=== PATIENT | male | born 1950 | race Caucasian/White ===

== ENCOUNTER → 2019-09-20 | Outpatient (CLI) | payer OTHER, MEDICARE ==
[~2019-09-20] MED LIST: ASA81BEC PO; CYMBALTA30 MG PO; FLOMAX0.4 MG PO; GLIPIZIDE 10 MG10 MG PO; HYOSCYAMINE0.125 MG PO; LIPITOR40 MG PO; METFORMIN HCL500 M3 PO; ONGLYZA5 MG PO; ZOLOFT100 MG PO
== END ==
LOC: SJCVC 13:30 → SJCVCIMAG 13:30
DX: I21.19 ST elevation (STEMI) myocardial infarction involving other coronary artery of inferior wall (principal); I44.0 Atrioventricular block, first degree; I07.1 Rheumatic tricuspid insufficiency; R94.31 Abnormal electrocardiogram [ECG] [EKG]; I77.89 Other specified disorders of arteries and arterioles; I25.10 Atherosclerotic heart disease of native coronary artery without angina pectoris; E78.00 Pure hypercholesterolemia, unspecified; E11.9 Type 2 diabetes mellitus without complications; Z95.5 Presence of coronary angioplasty implant and graft; Z79.899 Other long term (current) drug therapy; Z87.891 Personal history of nicotine dependence

== ENCOUNTER → 2019-09-26 | Outpatient (CLI) | payer OTHER, MEDICARE ==
[~2019-09-26] VITALS: Ht 193 cm; Wt 95.3 kg
[2019-09-26 07:17] VITALS: BP 115/68
[2019-09-26 07:28] LABS: HEMATOCRIT 45.2 % (42.0-52.0); MCH 31.5 pg (26.0-34.0); MCHC 33.3 g/dL (28.0-37.0); MCV 94.7 fL (80.0-100.0); RBC 4.77 mil/uL (4.50-6.00); RDW 13.3 % (10.5-14.5)
[2019-09-26 07:46] LABS: CALCIUM 9.5 mg/dL (8.5-10.1); CREATININE 0.9 mg/dL (0.7-1.3); POTASSIUM 4.4 mmol/L (3.5-5.1)
--- NOTE | 2019-09-26 09:23 | EKG ---
[facility] [place] [address] ELECTROCARDIOGRAM REPORT Name: CHRISTINA CEDILLO Room #: REG [facility].#: [id number] Admission: 09/26/19 Attend Phys: Kole Saavedra MD Discharge: Date of : 46 Report #: [id number] THIS REPORT FOR: cc: Hilda Arora MD, Deborah S. MD Lundgren, Craig H. MD [facility] ~ THIS REPORT FOR: //name// [facility] Test Date: 2019-09-26 Test Time: 07:16:40 Pat Name: CHRISTINA CEDILLO Department: Room: Gender: Income Tax Auditor: ADRIANA : 1950 Requested By: Kole Saavedra Order Number: [id number] MD: Shahid Sawyer Measurements Intervals [place] Rate: 62 P: 30 NC: 222 QRS: 7 QRSD: 101 T: 32 QT: 426 QTc: 433 Interpretive Statements Sinus rhythm Prolonged NC interval No previous ECG available for comparison Electronically Signed On 09-26-2019 9:22:31 CDT by Shahid Sawyer [email or web address] <ELECTRONICALLY SIGNED> By: Shahid Sawyer MD, [facility] 09/26/19 0922 5 5 Shahid Sawyer MD, [facility] /EPI
--- NOTE | 2019-09-26 10:55 | CATHLAB ---
[facility] [place] [address] INVASIVE PROCEDURE REPORT Name: CHRISTINA CEDILLO Room #: REG [facility]#: [id number] Admission: 09/26/19 Attend Phys: Kole Saavedra MD Discharge: Date of : 46 Report #: [id number] THIS REPORT FOR: cc: Hilda Arora MD, Deborah S. MD Park, Jin S. MD ~ APPROVED REPORT Study performed: 09/26/2019 08:02:26 Patient Details Patient Status: Out-Patient Room #: The patient is a 69 year-old male Event Personnel Kole Saavedra Professor Of Psychiatry, Judi Zamora RTR, PUBLIC HEALTH DENTIST Monitor, Katharine Tse RN RN, Indira Maloney Procedures Performed Art Access - R femoral artery* Left Heart Cath w/or w/o Coronaries [id number] [facility] [address]84 Initial Mod Sed Same Phys/QHP Gr5y 004443 Hemostasis with Manual pressure 54760 Mod Sed Same Phys/QHP Ea 048119 Indication Dyspnea, Unstable angina Risk Factors Hypercholesterolemia, Coronary Artery DiseaseHypertension, Diabetes Tobacco History () Previous Procedures/Diagnoses Previous PCI Procedure Narrative The Right Groin^ was infiltrated with 1% Lidocaine subcutaneous anesthesia. A PINNACLE 4FR Sheath #[id number] sheath was inserted into the RFA^. Coronary angiography was performed using coronary diagnostic catheters. The right coronary system was accessed and visualized with a JR4 catheter. The left coronary system was accessed and visualized with a JL4 catheter. The left ventricle was accessed and visualized with a angled pigtail catheter. Left ventricular/Aortic Valve gradient assessed via catheter pullback. Left ventriculogram was performed in 30 degree projection. [facility] [address] [place] [address] INVASIVE PROCEDURE REPORT Name: CHRISTINA CEDILLO Room #: REG CL [facility]#: [id number] Admission: 09/26/19 Attend Phys: Kole Saavedra MD Discharge: Date of : 46 Report #: [id number] was obtained with manual pressure following sheath removal without any complications. The patient tolerated the procedure well and there were no complications associated with the procedure. There was no hematoma. Intraoperative Conscious Sedation Sedation start time: 08:12 Case end Time: 08:45 Fentanyl 50 mcg Versed 1 mg Fluoro Time: 3.70 minutes Dose: DAP 5972.00 cGycm2 911 mGy Contrast Type and Amount: Omnipaque 85 ml Coronary Angiography The patient's coronary anatomy is right dominant. Diagnostic Cath Left Main This is a patent vessel, with no flow-limiting lesions. LAD There are ectatic regions in the proximal and mid segments of the LAD. The distal LAD tapers at the apex. There is a stent in the proximal segment, patent with minimal restenosis. Diagonal 1 This is a small to moderate size caliber vessel, patent with no flow-limiting lesions. Circumflex There is a stent in the proximal segment, patent with minimal restenosis. OM1 This is a small to moderate size caliber vessel, patent with no flow-limiting lesions. OM2 This is a small to moderate size caliber vessel, patent with no flow-limiting lesions. Right Coronary The RCA is a dominant vessel, with ectatic segments throughout the RCA proper. There is a stent in the proximal RCA, patent with minimal restenosis. R PDA This is a moderate size caliber vessel, patent with no flow-limiting lesions. RPLV This is a moderate size caliber vessel, patent with no flow-limiting lesions. Left Ventriculography The left ventricle is normal in size with normal contractility. Hemodynamics The aortic pressure is 115/65 mmHg with a mean of 86 mmHg. The left ventricular pressure is 120/3 mmHg with a mean of mmHg. The left [facility] [address] [place] [address] INVASIVE PROCEDURE REPORT Name: CHRISTINA CEDILLO LISANDRO Room #: REG CL [facility]#: [id number] Admission: 09/26/19 Attend Phys: Kole Saavedra MD Discharge: Date of : 46 Report #: [id number] ventricular end diastolic pressure is 16 mmHg. Conclusion 1. There are patent stents in the proximal LAD, left circumflex and RCA. 2. There are ectatic regions in the LAD and RCA. 3. There is normal LV systolic function. 4. Recommend aggressive risk factor management. <ELECTRONICALLY SIGNED> By: Kole Saavedra MD 09/26/19 1054 1054 1054 Kole Saavedra MD /INF
== END ==
LOC: CATH 09-25 12:51
PROVIDERS: Internal Medicine Cardiovascular Disease
DX: I25.110 Atherosclerotic heart disease of native coronary artery with unstable angina pectoris (principal); E11.9 Type 2 diabetes mellitus without complications; E78.5 Hyperlipidemia, unspecified; I95.9 Hypotension, unspecified

== ENCOUNTER → 2019-10-10 | Outpatient (CLI) | payer OTHER, MEDICARE | LOC: SJCVC 14:51 | DX: I44.0 Atrioventricular block, first degree (principal); R94.31 Abnormal electrocardiogram [ECG] [EKG]; I25.10 Atherosclerotic heart disease of native coronary artery without angina pectoris; E78.00 Pure hypercholesterolemia, unspecified; Z79.82 Long term (current) use of aspirin; Z79.899 Other long term (current) drug therapy; Z79.84 Long term (current) use of oral hypoglycemic drugs; Z87.891 Personal history of nicotine dependence ==

== ENCOUNTER → 2019-11-01 | Outpatient (CLI) | payer OTHER, MEDICARE | LOC: SJCVC 10:39 | DX: I44.0 Atrioventricular block, first degree (principal); R07.9 Chest pain, unspecified; I25.10 Atherosclerotic heart disease of native coronary artery without angina pectoris; E78.00 Pure hypercholesterolemia, unspecified; R06.09 Other forms of dyspnea ==

== ENCOUNTER → 2019-11-21 | Outpatient (CLI) | payer OTHER, MEDICARE | LOC: RAD 10:21 | DX: R06.02 Shortness of breath (principal) ==